=== PATIENT | female | born 1985 | race Caucasian/White ===

== ENCOUNTER 2018-05-14 13:10 | Emergency (ER) | payer SELFPAY ==
[~2018-05-14] VITALS: Ht 167.6 cm; Wt 67.1 kg
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
[2018-05-14 15:07] VITALS: BP 112/55
[2018-05-14] MEDS ORDERED: CYCL-331 PO (15:11)
[2018-05-14] MEDS ORDERED: NAPR-683 PO (15:11)
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
== END 2018-05-14 15:19 | disposition home or self-care (01) ==
LOC: EEVIPCON 13:10 → ER 13:10
DX: S63.501A Unspecified sprain of right wrist, initial encounter (principal); S10.93XA Contusion of unspecified part of neck, initial encounter; H11.32 Conjunctival hemorrhage, left eye; S05.12XA Contusion of eyeball and orbital tissues, left eye, initial encounter; S60.222A Contusion of left hand, initial encounter; Y08.89XA Assault by other specified means, initial encounter; Y93.89 Activity, other specified; Y92.89 Other specified places as the place of occurrence of the external cause; Y99.8 Other external cause status
CPT/HCPCS: 70450; 70486; 72125; 73110; 99284-25

== ENCOUNTER 2021-11-03 11:37 | Emergency (ER) | payer SELFPAY ==
[~2021-11-03] VITALS: Ht 167.6 cm; Wt 68.0 kg
[~2021-11-03 11:37] MED LIST: CYCL10TA19 PO; NAPR-683 PO
[2021-11-03 11:45] VITALS: BP 160/101
[2021-11-03] MEDS: IOHEXOL 350 MG/ML 100 ML VIAL. IV ONE (12:32)
--- NOTE | 2021-11-03 12:36 | PHYS DOC ---
Past History Past Medical History: No Pertinent History Past Surgical History: No Surgical History Alcohol Use: Occasionally Drug Use: Marijuana General Adult EDM: Chief Complaint: CHEST PAIN HPI: HPI: Patient is a 35-year-old female with chest pains been present for about a month. This is left-sided and is described as a constant dull ache which is progressively getting worse. She does not have any shortness of breath, nausea, vomiting or diaphoresis. Pain does not seem to be exertional but does at times radiate down her left arm. She does not have a history of cardiac disease. No history of trauma. Patient has not had any fever or cough. Review of Systems: Review of Systems: Constitutional: Denies fever Eyes: Denies change in visual acuity or eye pain HENT: Denies sore throat Respiratory: Denies shortness of breath Cardiovascular: Reports chest pain GI: Denies abd pain : Denies dysuria Musculoskeletal: Denies back or extremity injury Integument: Denies rash or skin lesions Neurologic: Denies headache, focal weakness or sensory changes All other systems were reviewed and found to be within normal limits, except as documented in this note. Current Medications: Current Meds: Current Medications Medications (Trade) Dose Ordered Sig/Zoraida Start Time Stop Time Status Last Admin Dose Admin Aspirin (Aspirin Chewable) 324 mg 1X ONCE 11/03/21 12:15 11/03/21 12:16 DC Famotidine (Pepcid) 20 mg 1X ONCE 11/03/21 12:15 11/03/21 12:16 DC Iohexol (Omnipaque 350 Mg/ml) 100 ml 1X ONCE 11/03/21 12:15 11/03/21 12:16 DC 11/03/21 12:32 100 ML Ketorolac Tromethamine (Toradol 30mg Vial) 30 mg 1X ONCE 11/03/21 12:15 11/03/21 12:16 DC Allergies: Allergies: Allergies Coded Allergies Type Severity Reaction Last Updated Verified No Known Drug Allergies 05/14/18 No Physical Exam: PE: Constitutional: Well developed, well nourished, no acute distress, non-toxic appearance. HENT: Normocephalic, atraumatic, bilateral external ears normal, mucosa moist, nose normal. Eyes: EOMI, conjunctiva normal, no discharge. Neck: Normal range of motion, supple, no stridor, no meningeal signs. Cardiovascular: Regular rate and rhythm Lungs & Thorax: Bilateral breath sounds clear to auscultation Abdomen: Soft, no tenderness or obvious masses Skin: Warm, dry, no erythema, no rash. Extremities: No tenderness, no cyanosis, no clubbing, ROM intact, no edema. Neurologic: Alert and oriented, normal motor function, normal sensory function, no focal deficits noted. Psychologic: Affect normal, judgement normal, anxious Current Patient Data: Vital Signs: Vital Signs Date Time Temp Pulse Resp B/P (MAP) Pulse Ox O2 Delivery O2 Flow Rate FiO2 11/03/21 11:45 97.9 76 16 160/101 (120) 100 Room Air EKG: EKG: Twelve-lead EKG demonstrates a sinus rhythm. WI, QRS and QT corrected intervals are within normal limits. No ST segment elevation or depression. Good R wave progression. No clinically pertinent Q waves. [] Radiology/Procedures: Radiology/Procedures: [] Impressions: PATIENT: MACY BEAULIEU ACCOUNT: [id number] : 1985 LOCATION: ER AGE: 35 SEX: F EXAM STATUS: REG ER ORD. PHYSICIAN: LIV PANG MD REASON: Chest pain-GIVEN 100 ML OMNI 350 PROCEDURE: CT ANGIOGRAPHY CHEST Exam Date: 11/03/2021 12:37 PM CTA CHEST Indication: Reason: Chest pain-GIVEN 100 ML OMNI 350 / Spl. Instructions: / History: . TECHNIQUE: CT angiogram of the chest was performed following the administration of nonionic intravenous contrast for evaluation of pulmonary embolus. 3D MIPs were created and reviewed on an independent workstation to assist in diagnosis and clinical management. One or more of the following dose reduction techniques were utilized: *Automated exposure control (AEC) *Adjustment of mA and/or kV according to patient size *Use of iterative reconstruction technique *CT scan done according to ALARA, or ALARA/IMAGE GENTLY FINDINGS: There is adequate opacification of the pulmonary arteries. No central intravascular filling defects are appreciated. There is no evidence for central pulmonary embolus. The aorta is normal in caliber without evidence for dissection. The heart is normal in size without pericardial effusion. Minimal or no significant coronary artery calcifications are identified. The visualized thyroid gland is within normal limits. No lymphadenopathy is seen. The central airways are patent. There is no focal consolidation, pleural effusion or pneumothorax. Images of the upper abdomen demonstrate no focal abnormality. Osseous structures are intact. IMPRESSION: No evidence for central pulmonary embolus. Electronically signed by: Kaylin Wilder MD (11/03/2021 12:45 PM) [id number] DICTATED AND SIGNED BY: KAYLIN WILDER MD DATE: 11/03/21 1242 CC: PCP,NO; LIV PANG MD ~ Heart Score: C/O Chest Pain: Yes HEART Score for Chest Pain: HEART Score for Chest Pain Response (Comments) Value History Slighlty/Non-Suspicious 0 ECG Normal 0 Age < 45 0 Risk Factors No Risk Factors 0 Troponin < Normal Limit 0 Total 0 Risk Factors: Risk Factors: DM, Current or recent (<one month) smoker, HTN, HLP, family history of CAD, obesity. Risk Scores: Score 0 - 3: 2.5% MACE over next 6 weeks - Discharge Home Score 4 - 6: 20.3% MACE over next 6 weeks - Admit for Clinical Observation Score 7 - 10: 72.7% MACE over next 6 weeks - Early Invasive Strategies Course & Med Decision Making: Course & Med Decision Making Pertinent Labs and Imaging studies reviewed. (See chart for details) []This is a 35-year-old female has had chest pain for weeks now. CT of the chest was obtained and this is negative for mass, pulmonary embolus or other acute process. EKG was unremarkable and the patient's lab studies are unrevealing. Troponins negative. We will give her follow-up with cardiology. Return to the emergency department if symptoms become worse or other concerns arise, she stable for discharge. Dragon Disclaimer: Dragon Disclaimer: This electronic medical record was generated, in whole or in part, using a voice recognition dictation system. Departure Departure: Impression: Primary Impression: Chest pain Disposition: HOME / SELF CARE / HOMELESS Condition: STABLE Referrals: PCP,NO (PCP) [facility] Patient Instructions: Chest Pain (Nonspecific) LIV PANG MD Nov 03, 2021 12:36
[2021-11-03] MEDS: ASPIRIN CHEWABLE 81 MG TABLET. PO ONE (12:39)
[2021-11-03] MEDS: KETOROLAC 30 MG/ML VIAL. IVP ONE (12:39)
[2021-11-03] MEDS: FAMOTIDINE 20 MG TABLET PO ONE (12:39)
[2021-11-03 12:43] LABS: BASO % 1 % (0-3); EOS # 0.1 x10^3/uL (0.0-0.7); EOS % 1 % (0-3); HEMATOCRIT 39.2 % (36.0-47.0); HEMOGLOBIN 13.1 g/dL (12.0-15.5); LYMPH # 2.3 x10^3/uL (1.0-4.8); LYMPH % 40 % (24-48); MEAN CORPUSCULAR HEMOGLOBIN 32 pg (25-35); MEAN CORPUSCULAR HGB CONC 33 g/dL (31-37); MEAN CORPUSCULAR VOLUME 95 fL (79-100); MONO # 0.3 x10^3/uL (0.0-1.1); MONO % 5 % (0-9); NEUT # 3.1 x10^3uL (1.8-7.7); NEUT % 54 % (31-73); PLATELET COUNT 221 x10^3/uL (140-400); RED BLOOD COUNT 4.12 x10^6/uL (3.50-5.40); RED CELL DISTRIBUTION WIDTH 13.7 % (11.5-14.5); WHITE BLOOD COUNT 5.8 x10^3/uL (4.0-11.0)
--- NOTE | 2021-11-03 12:45 | EKG ---
[address] [address] Test Date: 2021-11-03 Test Time: 11:44:17 Pat Name: MACY BEAULIEU Department: Room: Gender: F Gemologist: DALLIN : 1985 Requested By: LIV PANG Order Number: [id number] Reading MD: Hector Harley Measurements Intervals [place] Rate: 87 P: 47 MN: 144 QRS: 35 QRSD: 82 T: 32 QT: 352 QTc: 429 Interpretive Statements SINUS RHYTHM Electronically Signed On 11-03-2021 18:02:21 CDT by Hector Harley
[2021-11-03 12:47] LABS: CALCIUM 8.6 mg/dL (8.5-10.1); CREATININE 0.8 mg/dL (0.6-1.0); GFR 82.1; POTASSIUM 4.3 mmol/L (3.5-5.1)
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
[2021-11-03 12:54] LABS: ALBUMIN 3.9 g/dL (3.4-5.0); ALBUMIN/GLOBULIN RATIO 1.6 (1.0-1.7); TOTAL BILIRUBIN 1.5 mg/dL (0.2-1.0); TOTAL PROTEIN 6.3 g/dL (6.4-8.2)
[2021-11-03 13:20] LABS: BACTERIA,URINE 0 /HPF (0-FEW); CLARITY,URINE CLEAR; COLOR,URINE YELLOW; GLUCOSE,URINE NEG (NEG); NITRITE,URINE NEG (NEG); SQUAMOUS EPITHELIAL CELL,UR FEW /LPF; UROBILINOGEN,URINE 0.2 mg/dL (0.2 mg/dL)
== END 2021-11-03 14:14 | disposition home or self-care (01) ==
LOC: ER 11:37
DX: R07.89 Other chest pain (principal)
CPT/HCPCS: 36415; 71275; 80053; 81001; 81025; 83690; 83735; 84484; 85025; 93005; 96374; 99285; J1885; Q9967